=== PATIENT | male | born 1950 | race Two or more races ===

== ENCOUNTER 2017-09-04 05:39 | Inpatient (IN) | payer OTHER ==
[2017-09-04] VITALS (10 sets, daily range): BP systolic 109–129; BP diastolic 70–84
[~2017-09-04] VITALS: Ht 188 cm; Wt 103.4 kg
[2017-09-04] MEDS ORDERED: celeBREX 200mg Cap **SURGERY PATIENTS ONLY ORAL ONE (06:00)
[2017-09-04] MEDS ORDERED: ceFAZolin 1gm/50ml Premix 50 ML IV ONE (06:00)
[2017-09-04] MEDS ORDERED: oxyCONTIN 20mg tab ORAL ONE (06:00)
[2017-09-04] MEDS ORDERED: ceFAZolin sod 1 GM in D5W 55 ML IVPB SCH (06:00)
[2017-09-04] MEDS ORDERED: ZOLOFT100 MG ORAL (06:05)
[2017-09-04] MEDS ORDERED: BACTROBAN NASAL1 GM NASAL (06:05)
[2017-09-04] MEDS ORDERED: VENTOLIN HFA18 GM INH (06:05)
[2017-09-04] MEDS ORDERED: SYMBICORT 16010.2 G1 IH (06:05)
[2017-09-04] MEDS ORDERED: DIOVAN HCT 3201 EACH ORAL (06:05)
[2017-09-04] MEDS ORDERED: ZOLPIDEM TARTRA10 MG ORAL (06:05)
[2017-09-04] MEDS ORDERED: MELATONIN1 M2 PO (06:34)
[2017-09-04] MEDS ORDERED: Bupivacaine 0.5% Inj 30 ml vial INJ ONE (06:44)
[2017-09-04] MEDS ORDERED: cloNIDine 1000mcg/10ml inj ONE (06:44)
[2017-09-04] MEDS ORDERED: Ropivacaine 5mg/ml Vial 30ml INJ ONE (06:45)
--- NOTE | 2017-09-04 06:59 | Pre-Procedure Note/Attestation ---
Pre-Procedure Note/Attestation Complete Prior to Procedure Planned Procedure: left Procedure Narrative: Left tka Indications for Procedure Pre-Operative Diagnosis: Left knee arthritis Attestation I attest that I discussed the nature of the procedure; its benefits; risks and complications; and alternatives (and the risks and benefits of such alternatives ), prior to the procedure, with the patient (or the patient's legal insurance account representative). I attest that, if there was a reasonable possibility of needing a blood transfusion, the patient (or the patient's legal insurance account representative) was given the [facility] standardized written summary, pursuant to the Praful Simón Blood Safety Act ([place] Health and Safety Code # 1645, as amended). I attest that I re-evaluated the patient just prior to the surgery and that there has been no change in the patient's H&P, except as documented below: NONE HUSSEIN GÓMEZ Sep 04, 2017 06:59
[2017-09-04] MEDS ORDERED: Bacitracin 50000 Units Vial ONE (07:00)
[2017-09-04] MEDS ORDERED: NeoSporin Gu Irrig 1ml Amp IRRIG ONE (07:00)
[2017-09-04] MEDS ORDERED: Propofol 200mg/20ml IV ONE (07:00)
[2017-09-04] MEDS ORDERED: Midazolam 2mg/2ml Inj ONE (07:00)
[2017-09-04] MEDS ORDERED: Lidocaine 1% MPF 10mg/ml 5ml ONE (07:00)
[2017-09-04] MEDS ORDERED: NS Irrig 1000ml ONE (07:00)
[2017-09-04] MEDS ORDERED: Alfentanil 2ml Inj ONE (07:00)
[2017-09-04] MEDS ORDERED: Sterile Water Irrig 1000ml IRRIG ONE (07:00)
[2017-09-04] MEDS ORDERED: LR 1000ml ONE (07:00)
[2017-09-04] MEDS ORDERED: Dexamethasone 4mg/ml vial ONE (07:00)
[2017-09-04] MEDS ORDERED: HYDROmorphone 1mg/ml Carpuject SUBQ PRN (07:30)
[2017-09-04] MEDS ORDERED: Milk of Magnesia 30ml Ud ORAL PRN (07:30)
[2017-09-04] MEDS ORDERED: HYDROcodone/Acetamin 7.5/325 tab ORAL PRN ×2 (07:30→08:00)
[2017-09-04] MEDS ORDERED: LR 1000ml 1,000 ML IVLG SCH (07:46)
[2017-09-04] MEDS ORDERED: LORazepam Inj 2mg/ml 1ml IV PRN (08:00)
[2017-09-04] MEDS ORDERED: fentaNYL 100 mcg/2 mL IV PRN (08:00)
[2017-09-04] MEDS ORDERED: Norco 5mg/325mg tab ORAL PRN (08:00)
[2017-09-04] MEDS ORDERED: Tranexamic Acid 1,000 MG in NS 65 ML IVPB ONE (08:00)
[2017-09-04] MEDS ORDERED: oxyCODONE HCL/Acetaminophen 5/325mg ORAL PRN (08:00)
[2017-09-04] MEDS ORDERED: Ketorolac 30mg Inj IV PRN (08:00)
[2017-09-04] MEDS ORDERED: Ketorolac 60mg Inj IV PRN (08:00)
[2017-09-04] MEDS ORDERED: DiphenhydrAMINE 50mg/ml Inj IVP PRN (08:00)
[2017-09-04] MEDS ORDERED: Labetalol 5mg/ml 20ml vial IV PRN (08:00)
[2017-09-04] MEDS ORDERED: Hydromorphone 0.5mg/0.5ml inj IVP PRN (08:00)
[2017-09-04] MEDS ORDERED: Midazolam 2mg/2ml Inj IVP PRN (08:00)
[2017-09-04] MEDS ORDERED: Atropine Inj 1mg/10ml Syr IV PRN (08:00)
--- NOTE | 2017-09-04 08:00 | Anethesia Preoperative Eval ---
Anesthesia Pre-op PMH/ROS General Date of Evaluation: Sep 04, 2017 Time of Evaluation: 07:01 Anesthesiologist: Kwame ASA Score: ASA 3 Mallampati Score Class I : Soft palate, uvula, fauces, pillars visible Class II: Soft palate, uvula, fauces visible Class III: Soft palate, base of uvula visible Class IV: Only hard plate visible Mallampati Classification: Class II Surgeon: Madan Diagnosis: L Knee Pain Surgical Procedure: L Knee Total Arthroplasty Anesthesia History: none Social History: smoking Family History: no anesthesia problems Allergies: Coded Allergies: No Known Allergies (Unverified , 09/04/17) Medications: see eMAR Past Medical History Cardiovascular: Reports: HTN Pulmonary: Reports: asthma, COPD, other - Hiatal Hernia Gastrointestinal/Genitourinary: Reports: other - BPH Hematology/Immune: Reports: DVT, other - Skin CA Musculoskeletal/Integumentary: Reports: DJD PSxH Narrative: R TKR Anesthesia Pre-op Phys. Exam Physician Exam Last Vital Signs Date Time Temp Pulse Resp B/P (MAP) Pulse Ox O2 Delivery O2 Flow Rate FiO2 09/04/17 06:40 97.0 55 18 129/80 94 Room Air Constitutional: NAD Neurologic: CN 2-12 intact Cardiovascular: RRR Respiratory: CTA Gastrointestinal: S/NT/ND Airway Exam Mallampati Score: Class II MO: limited ROM: limited Teeth: intact Anesthesia Pre-op A/P Risk Assessment & Plan Assessment: ASA 3 Plan: GA, BIS, Spinal, L Adductor Block Status Change Before Surgery: No Pre-Antibiotics Dru Grams Ancef IV Given Within 1 Hr of Incision: Yes Time Given: 07:36 Virgil Nagel MD Sep 04, 2017 08:00
--- NOTE | 2017-09-04 08:01 | Immediate Post-Op Evaluation ---
Immediate Post-Op Evalulation Immediate Post-Op Evalulation Procedure: L Knee Total Arthroplasty Date of Evaluation: Sep 04, 2017 Time of Evaluation: 10:35 IV Fluids: 1000 LR Blood Products: 0 Estimated Blood Loss: 50 Urinary Output: 400 Blood Pressure Systolic: 123 Blood Pressure Diastolic: 84 Pulse Rate: 87 Respiratory Rate: 16 O2 Sat by Pulse Oximetry: 99 Temperature (Fahrenheit): 97.3 Pain Score (1-10): 0 Nausea: No Vomiting: No Complications 0 Patient Status: awake, reacts, patent, extubated, none Hydration Status: adequate Dru Grams Ancef IV Given Within 1 Hr of Incision: Yes Time Given: 07:36 Virgil Nagel MD Sep 04, 2017 08:01
--- NOTE | 2017-09-04 10:13 | Brief Operative Note ---
Immediate Post Operative Note Operative Note Chief Complaint: left knee pain Pre-op Diagnosis: left knee arthritis Procedure: left tka Post-op Diagnosis: same as pre-op Findings: consistent w/pre-op dx studies Surgeon: md demetrice Varnish Melter Helper: souleymane encarnacion Anesthesiologist: md abe Anesthesia: general, regional Specimen: yes Complications: none Condition: stable Fluids: ns Estimated Blood Loss: minimal Drains: none Implant(s) used?: Yes - ZELDA Valverde Sep 04, 2017 10:13
--- NOTE | 2017-09-04 13:24 | Diagnostic Imaging Report ---
Indications: Postoperative status post left knee arthroplasty Technique: Two views of the left knee Comparison: None Findings: Two postoperative views of the left knee demonstrate total knee arthroplasty, good anatomic alignment of the prosthesis. . There is postsurgical soft tissue air. Overlying skin sabrina. Impression: Postoperative left knee, no unusual features.
[2017-09-04] MEDS: celeBREX 200mg Cap **SURGERY PATIENTS ONLY ORAL SCH ×2 (13:30→23:07)
--- NOTE | 2017-09-04 13:45 | Operative Note - Dictated ---
DATE OF OPERATION: 09/04/2017 PREOPERATIVE DIAGNOSIS: Left knee end-stage arthritis. POSTOPERATIVE DIAGNOSIS: Left knee end-stage arthritis. PROCEDURE: Left total knee arthroplasty using the [employer] Person[employer] system, size #11 femur, size H tibia with 35 mm all-poly patella with a 10-mm ultra cross-linked polyethylene with vitamin E-infused tibial insert, all cemented. SURGEON: Jhonny Hagre M.D. MILITARY PERSONNEL SPECIALIST: Jyothi Fuentes PA-C. ANESTHESIOLOGIST: Dr. Nagel. ANESTHESIA: Spinal anesthesia with adductor nerve block. ESTIMATED BLOOD LOSS: Less than 100 mL. TOURNIQUET TIME: 78 minutes. COMPLICATIONS: None. BRIEF HISTORY: The patient is a pleasant 66-year-old gentleman who has had ongoing left knee arthritis. He failed nonoperative treatment. After full discussion of risks and benefits of surgery and complications associated with it including infection, bleeding, neurovascular complication, possibility of continued pain, possibility of infection requiring resection arthroplasty, possible DVT or PE, loss of motion, continued stiffness, and inability to walk for prolonged period of time, he opted for surgical treatment as described above. OPERATIVE PROCEDURE: The patient was brought to the operating table and was placed supine. All pressure points were well padded. Spinal anesthesia was induced. The left knee was prepped and draped in usual sterile fashion. Time-out was performed and preop antibiotic was given and 1 g of tranexamic acid was given. The left leg was then exsanguinated and tourniquet was inflated to 275 mmHg. A standard anterior approach to the knee was undertaken. Medial parapatellar arthrotomy was performed. The deep fibers of MCL were released and medial and lateral meniscus were removed. The kneecap was everted and the knee was flexed. The fat pad was dissected. At this point, the ACL and PCL were removed and intramedullary access into the femur was obtained. Intramedullary guide was placed into the femur and 7-degree valgus cut of distal femur was performed without any complication. Sizing was performed and size #11 appeared to be the right size. The knee was placed in about 3 degrees of external rotation and the guide was applied and anterior, posterior, and chamfer cuts were performed without any complication. There was very slight notching of the anterior femur which was inconsequential. At this point, all wounds were thoroughly irrigated. The femoral trial was applied and there was excellent fit. The femoral peg holes were then drilled without any complications and femur was slightly lateralized. Once this was completed, care was given to tibia. The anterior tibial crest was palpated. The external guide was placed and using the guide, anatomical access was recreated and 3 mm was taken off the most involved side, which was the medial side. This provided excellent flexion-extension gap which was checked. At this point, sizing was performed and size H appeared to be the right size. The size H tibial component was placed in slight external rotation and slightly lateralized and stabilized with some pins. At this point, the tibial component was then punched without any complication. The trial components were applied. There was excellent range of motion and excellent stability with varus and valgus stressing. At this point, care was given to the patella. The patella was everted. It measured 25 mm. At this point, a standard patellar cut was performed and the final patellar cut was 14 mm in thickness. The peg holes were drilled and 35 mm patellar component was applied at this point, and all trial components were applied and the knee was placed through range of motion. There was full extension, full flexion, and excellent stability at zero, 30 degrees, 45 degrees, and 90 degrees of flexion. The patellofemoral tracking was excellent. A 10-mm poly trial was used for trialing. At this point, all trial components were removed. The knee was thoroughly irrigated using copious amount of fluid. Cement was mixed and the tibial component, femoral component, and patellar components were all cemented without any complications. All excess cement was removed. The knee was thoroughly irrigated multiple times with Simpulse irrigation. The trialing was performed and 10-mm poly appeared to be the right size which provided excellent range of motion stability as described previously. Therefore, vitamin E infused ultra cross-linked polyethylene was then locked in without any complications. At this point, range of motion and patellofemoral tracking was checked one more last time and was excellent again. The knee was thoroughly irrigated again. There were no loose fragments. At this point, tourniquet was deflated and there was minimal bleeding which was cauterized. The extensor mechanism was closed with #1 Vicryl suture, subcutaneous tissue was closed in 2-0 Vicryl suture, and the skin was closed in 3-0 Monocryl suture. Sterile dressing was applied and Dermabond was applied prior to applying sterile dressing. The patient was then awakened and was taken to recovery room in stable condition. All lap counts and instrument counts were correct. Jhonny Gianna Hager DR: Maurilio JOB#: [id number] CC: JONATHAN
--- NOTE | 2017-09-04 14:13 | General Progress Note ---
Assessment/Plan Status Narrative s/p toal knee arthroplasty history of hypertenison Assessment/Plan PHYSICAKL THERPAY OCCUPATIONA LTHERPAY CPM FOLLOW CBC DAILY APINCONTROL HAS HYPETRTENSION MONITOR BP AND BP MEDS WITH PARAMETERS. Subjective Date patient seen: Sep 04, 2017 Time patient seen: 14:12 Constitutional: Reports: no symptoms Cardiovascular: Reports: no symptoms Allergies: Coded Allergies: No Known Allergies (Unverified , 09/04/17) Objective Last 24 Hour Vital Signs Date Time Temp Pulse Resp B/P (MAP) Pulse Ox O2 Delivery O2 Flow Rate FiO2 09/04/17 11:30 97.7 79 18 122/76 100 Nasal Cannula 3.0 09/04/17 11:15 80 20 114/75 100 Nasal Cannula 3.0 09/04/17 11:00 76 16 117/78 100 Nasal Cannula 3.0 09/04/17 10:50 79 18 121/74 100 Nasal Cannula 3.0 09/04/17 10:40 77 17 109/70 100 Nasal Cannula 3.0 09/04/17 10:30 81 20 117/82 100 Simple Mask 6.0 09/04/17 10:24 97.3 85 16 123/84 99 Simple Mask 6.0 09/04/17 10:23 207.1 87 16 99 09/04/17 06:40 97.0 55 18 129/80 94 Room Air Intake and Output 09/03/17 09/04/17 19:00 07:00 # Voids 1 Height (Feet): 6 Height (Inches): 2.00 Weight (Pounds): 228 General Appearance: WD/WN Neck: non-tender Cardiovascular: no JVD Respiratory/Chest: lungs clear Abdomen: soft Extremities: non-tender BRETT CHUNG Sep 04, 2017 14:13
[2017-09-04] MEDS: D5 1/2NS w/KCl 20mEq 1,000 ML IV SCH (14:24)
[2017-09-04] MEDS: ceFAZolin sod 1 GM in NS 55 ML IV SCH ×2 (14:24→21:05)
[2017-09-04] MEDS: Docusate 100mg cap ORAL SCH (17:38)
[2017-09-04] MEDS: Enoxaparin 30mg Inj SUBQ SCH (17:39)
[2017-09-04] MEDS ORDERED: Albuterol ud Inhalation HHN PRN (19:00)
[2017-09-04] MEDS: oxyCONTIN 20mg tab ORAL SCH (21:06)
[2017-09-05 00:30] VITALS: BP 136/78
--- NOTE | 2017-09-05 01:15 | Consultation ---
DATE OF CONSULTATION: 09/04/2017 INTERNAL MEDICINE CONSULTATION CONSULTING PHYSICIAN: Jordan Flores M.D. ATTENDING PHYSICIAN: Jhonny Hager M.D. HISTORY OF PRESENT ILLNESS: The patient is a very pleasant 66-year-old gentleman, who was admitted for left knee replacement by Dr. Hager. The patient has been seen postoperatively and feels well. Denies any fevers or chills. No chest pain. No shortness of breath. Pain in left knee controlled. PAST MEDICAL HISTORY: Includes history of asthma, history of hypertension, history of BPH, history of eczema psoriasis, history of previous right knee replacement, history of arthritis of his knees, history of insomnia, history of depression, and history of left ankle broken for which he had surgery back in 05/2015. He developed an infection as well and was hospitalized, and was on Xarelto at that time for three months. He had the hardware removed three months afterwards. History of bronchitis and history of insomnia. MEDICATIONS: Please see his reconciled medication list. ALLERGIES: He has no known allergies. FAMILY HISTORY: Mother and father both had high blood pressure. SOCIAL HISTORY: The patient does not smoke. Drinks alcohol socially. Drinks one cup of coffee a day. Used to work for the [employer] department. PHYSICAL EXAMINATION: GENERAL: He is well developed and well nourished, currently in no apparent distress. VITAL SIGNS: Stable. He is afebrile. HEENT: Head is normocephalic and atraumatic. Pupils are equal and reactive to light. Extraocular muscles are intact. Eyes are anicteric. NECK: Supple. No JVP. No bruits. LUNGS: Clear. HEART: Regular rate and rhythm. ABDOMEN: Soft. Positive bowel sounds. EXTREMITIES: Postoperatively, he has a knee immobilizer/brace. Neurovascular intact. PSYCHIATRIC: Normal mood and affect. NEUROLOGIC: Nonfocal. ASSESSMENT AND PLAN: The patient is a very pleasant 66-year-old gentleman, who underwent left knee replacement by Dr. Hager, postoperatively doing well. The patient should be on deep venous thrombosis and ulcer prophylaxis. He should be on his home medications as well. Thank you for allowing me to participate in the care of this patient. Jordan Flores M.D. DR: FABRICIO JOB#: [id number] CC:
[2017-09-05] MEDS: D5 1/2NS w/KCl 20mEq 1,000 ML IV SCH ×2 (02:50→16:45)
[2017-09-05] MEDS: Norco 5mg/325mg tab ORAL PRN ×4 (02:54→17:24)
[2017-09-05 04:42] VITALS: BP 133/80
[2017-09-05] MEDS: Enoxaparin 30mg Inj SUBQ SCH ×2 (06:34→18:46)
[2017-09-05 08:00] VITALS: BP 112/73
--- NOTE | 2017-09-05 08:04 | 48 Hour Post Anesthesia Eval ---
Post Anesthesia Evaluation Procedure: L Knee Total Arthroplasty Date of Evaluation: Sep 05, 2017 Time of Evaluation: 06:30 Blood Pressure Systolic: 133 0: 80 Pulse Rate: 78 Respiratory Rate: 18 Temperature (Fahrenheit): 98.2 O2 Sat by Pulse Oximetry: 95 Airway: patent Nausea: No Vomiting: No Pain Intensity: 3 Hydration Status: adequate Cardiopulmonary Status: at baseline Mental Status/LOC: patient returned to baseline Post-Anesthesia Complications: 0 Follow-up care needed: N/A - further care as per primary team ERIC SANCHEZ M.D. Sep 05, 2017 08:04
--- NOTE | 2017-09-05 08:10 | Orthopedic Progress Note ---
Orthopedic - Progress Note Subjective Symptoms: improved - walked with PT last evening. Walking with PT now Objective Vital Signs Labs Pending Last 24 Hour Vital Signs Date Time Temp Pulse Resp B/P (MAP) Pulse Ox O2 Delivery O2 Flow Rate FiO2 09/05/17 08:04 208.8 78 18 95 09/05/17 07:45 98.2 09/05/17 04:42 98.2 78 18 133/80 95 98.2 09/05/17 00:30 97.9 83 17 136/78 95 97.9 09/04/17 20:57 97.7 82 18 126/79 95 97.7 09/04/17 16:00 98.1 82 18 113/81 97 Nasal Cannula 3.0 98.1 09/04/17 11:30 97.7 79 18 122/76 100 Nasal Cannula 3.0 09/04/17 11:15 80 20 114/75 100 Nasal Cannula 3.0 09/04/17 11:00 76 16 117/78 100 Nasal Cannula 3.0 09/04/17 10:50 79 18 121/74 100 Nasal Cannula 3.0 09/04/17 10:40 77 17 109/70 100 Nasal Cannula 3.0 09/04/17 10:30 81 20 117/82 100 Simple Mask 6.0 09/04/17 10:24 97.3 85 16 123/84 99 Simple Mask 6.0 09/04/17 10:23 207.1 87 16 99 I&O Intake and Output 09/04/17 09/05/17 19:00 07:00 Intake Total 1025 ml 1020 ml Output Total 800 ml 1400 ml Balance 225 ml -380 ml Intake Oral 480 ml 120 ml IV Total 545 ml 900 ml Output Urine Total 800 ml 1400 ml # Voids 2 5 Wound: clean, dry, intact Drains: none Neuro Status: normal Vascular Status: normal Additional Comments Xray excellent Assessment Post-op Diagnosis POD 1 Procedure Performed left tka Plan Plan: PT, discharge plan - Likely home with services tomorrow, other - f/u today's labs ZELDA HAMMOND Sep 05, 2017 08:10
[2017-09-05] MEDS: Irbesartan 150mg tablet ORAL SCH (08:47)
[2017-09-05] MEDS: hydroCHLOROthiazide 12.5mg TAB ORAL SCH (08:47)
[2017-09-05] MEDS: celeBREX 200mg Cap **SURGERY PATIENTS ONLY ORAL SCH (08:48)
[2017-09-05] MEDS: Docusate 100mg cap ORAL SCH ×3 (08:49→17:19)
[2017-09-05] MEDS: oxyCONTIN 20mg tab ORAL SCH ×2 (08:49→21:21)
[2017-09-05 09:30] LABS: BASOPHILS % (AUTO) 0.2 % (0.0-2.0); HEMATOCRIT 38.7 % (42.0-52.0); HEMOGLOBIN 13.5 G/DL (14.2-18.0); LYMPHOCYTES % (AUTO) 6.6 % (20.0-45.0); MEAN CORPUSCULAR VOLUME 99 FL (80-99); MONOCYTES % (AUTO) 8.7 % (1.0-10.0); NEUTROPHILS % (AUTO) 84.4 % (45.0-75.0); PLATELET COUNT 198 K/UL (150-450); RED BLOOD COUNT 3.93 M/UL (4.70-6.10); RED CELL DISTRIBUTION WIDTH 12.1 % (11.6-14.8); WHITE BLOOD COUNT 15.3 K/UL (4.8-10.8)
[2017-09-05 12:00] VITALS: BP 123/74
[2017-09-05 16:00] VITALS: BP 111/67
--- NOTE | 2017-09-05 19:32 | General Progress Note ---
Assessment/Plan Assessment/Plan sp left knee replacement ho asthma leukocytosis ? reactive htn PT ambulate respiratory treatments pulmonary hygiene monitor labs dvt and ulcer prophylaxis Subjective Allergies: Coded Allergies: No Known Allergies (Unverified , 09/04/17) Subjective walking with PT no chest pain had some wheezing Objective Last 24 Hour Vital Signs Date Time Temp Pulse Resp B/P (MAP) Pulse Ox O2 Delivery O2 Flow Rate FiO2 09/05/17 18:38 77 18 96 Room Air 21 09/05/17 18:38 76 18 96 Room Air 21 09/05/17 18:23 98.2 09/05/17 17:24 98.2 09/05/17 16:00 97.9 70 20 111/67 95 Room Air 97.9 09/05/17 13:10 98.2 09/05/17 12:00 97.6 69 21 123/74 98 Room Air 97.6 09/05/17 12:00 97.6 69 21 123/74 98 Room Air 97.6 09/05/17 10:40 82 22 98 Room Air 21 09/05/17 10:38 80 20 97 Room Air 21 09/05/17 09:48 98.2 09/05/17 08:49 98.2 09/05/17 08:47 112/73 09/05/17 08:04 208.8 78 18 95 09/05/17 08:00 97.5 72 21 112/73 100 Room Air 97.5 09/05/17 07:45 98.2 09/05/17 04:42 98.2 78 18 133/80 95 98.2 09/05/17 00:30 97.9 83 17 136/78 95 97.9 09/04/17 20:57 97.7 82 18 126/79 95 97.7 Intake and Output 09/04/17 09/05/17 19:00 07:00 Intake Total 1025 ml 1020 ml Output Total 800 ml 1400 ml Balance 225 ml -380 ml Intake Oral 480 ml 120 ml IV Total 545 ml 900 ml Output Urine Total 800 ml 1400 ml # Voids 2 5 Laboratory Tests 09/05/17 08:55: White Blood Count 15.3H, Red Blood Count 3.93L, Hemoglobin 13.5L, Hematocrit 38.7L, Mean Corpuscular Volume 99, Mean Corpuscular Hemoglobin 34.2H, Mean Corpuscular Hemoglobin Concent 34.7, Red Cell Distribution Width 12.1, Platelet Count 198, Mean Platelet Volume 6.7, Neutrophils (%) (Auto) 84.4H, Lymphocytes ( %) (Auto) 6.6L, Monocytes (%) (Auto) 8.7, Eosinophils (%) (Auto) 0.0, Basophils (%) (Auto) 0.2 Height (Feet): 6 Height (Inches): 2.00 Weight (Pounds): 228 General Appearance: WD/WN, no apparent distress Neck: supple Cardiovascular: normal rate Respiratory/Chest: lungs clear Abdomen: soft ELIAZAR HASSAN Sep 05, 2017 19:32
[2017-09-05 20:00] VITALS: BP 127/82
[2017-09-06] VITALS: BP 125/73
[2017-09-06] MEDS: Norco 5mg/325mg tab ORAL PRN ×3 (00:53→17:56)
[2017-09-06 04:00] VITALS: BP 117/75
[2017-09-06] MEDS: D5 1/2NS w/KCl 20mEq 1,000 ML IV SCH (06:05)
[2017-09-06] MEDS: Enoxaparin 30mg Inj SUBQ SCH ×2 (06:06→19:00)
[2017-09-06 07:25] LABS: BASOPHILS % (AUTO) 0.5 % (0.0-2.0); EOSINOPHILS % (AUTO) 1.1 % (0.0-3.0); HEMATOCRIT 33.7 % (42.0-52.0); HEMOGLOBIN 11.8 G/DL (14.2-18.0); LYMPHOCYTES % (AUTO) 14.1 % (20.0-45.0); MEAN CORPUSCULAR VOLUME 100 FL (80-99); MONOCYTES % (AUTO) 11.7 % (1.0-10.0); NEUTROPHILS % (AUTO) 72.7 % (45.0-75.0); PLATELET COUNT 164 K/UL (150-450); RED BLOOD COUNT 3.39 M/UL (4.70-6.10); RED CELL DISTRIBUTION WIDTH 12.3 % (11.6-14.8); WHITE BLOOD COUNT 8.8 K/UL (4.8-10.8)
--- NOTE | 2017-09-06 07:33 | Orthopedic Progress Note ---
Orthopedic - Progress Note Subjective Symptoms: c/o post-op knee pain Objective Vital Signs Last 24 Hour Vital Signs Date Time Temp Pulse Resp B/P (MAP) Pulse Ox O2 Delivery O2 Flow Rate FiO2 09/06/17 04:00 97.4 62 18 117/75 98 Room Air 97.4 09/06/17 00:00 97.7 63 18 125/73 98 Room Air 97.7 09/05/17 20:00 97.6 66 18 127/82 98 Nasal Cannula 2.0 97.6 09/05/17 18:38 77 18 96 Room Air 21 09/05/17 18:38 76 18 96 Room Air 21 09/05/17 18:23 98.2 09/05/17 17:24 98.2 09/05/17 16:00 97.9 70 20 111/67 95 Room Air 97.9 09/05/17 13:10 98.2 09/05/17 12:00 97.6 69 21 123/74 98 Room Air 97.6 09/05/17 12:00 97.6 69 21 123/74 98 Room Air 97.6 09/05/17 10:40 82 22 98 Room Air 21 09/05/17 10:38 80 20 97 Room Air 21 09/05/17 09:48 98.2 09/05/17 08:49 98.2 09/05/17 08:47 112/73 09/05/17 08:04 208.8 78 18 95 09/05/17 08:00 97.5 72 21 112/73 100 Room Air 97.5 09/05/17 07:45 98.2 I&O Intake and Output 09/05/17 09/06/17 19:00 07:00 Intake Total 1862.5 ml 1050 ml Output Total 1200 ml Balance 662.5 ml 1050 ml Intake Oral 1000 ml 300 ml IV Total 862.5 ml 750 ml Output Urine Total 1200 ml # Voids 3 2 Wound: intact - , but there is some staining of the dressing. NO active wound bleed and wound approximated well Drains: none Neuro Status: normal Assessment Post-op Diagnosis Doing well s/p Left TKA Plan Plan: PT, pain management, discharge plan Additional Comments Dressing changes today. Follow up on HUSSEIN Bach Sep 06, 2017 07:33
[2017-09-06 08:00] VITALS: BP 125/79
[2017-09-06] MEDS: Irbesartan 150mg tablet ORAL SCH (08:17)
[2017-09-06] MEDS: Docusate 100mg cap ORAL SCH ×3 (08:19→18:05)
[2017-09-06] MEDS: celeBREX 200mg Cap **SURGERY PATIENTS ONLY ORAL SCH (08:19)
[2017-09-06] MEDS: oxyCONTIN 20mg tab ORAL SCH ×2 (08:19→21:06)
[2017-09-06] MEDS: hydroCHLOROthiazide 12.5mg TAB ORAL SCH (08:20)
[2017-09-06 12:00] VITALS: BP 135/79
--- NOTE | 2017-09-06 12:53 | General Progress Note ---
Assessment/Plan Assessment/Plan sp left knee replacement ho asthma leukocytosis resolved htn nauea PT ambulate respiratory treatments pulmonary hygiene antiemetic prn dvt and ulcer prophylaxis Subjective Allergies: Coded Allergies: No Known Allergies (Unverified , 09/04/17) Subjective feels better no chest painor sob some nasuea today after taking pain medication Objective Last 24 Hour Vital Signs Date Time Temp Pulse Resp B/P (MAP) Pulse Ox O2 Delivery O2 Flow Rate FiO2 09/06/17 09:13 78 16 96 Room Air 21 09/06/17 09:13 78 16 96 Room Air 21 09/06/17 08:17 125/79 09/06/17 08:00 98.3 60 19 125/79 98 98.3 09/06/17 04:00 97.4 62 18 117/75 98 Room Air 97.4 09/06/17 00:00 97.7 63 18 125/73 98 Room Air 97.7 09/05/17 20:00 97.6 66 18 127/82 98 Nasal Cannula 2.0 97.6 09/05/17 18:38 77 18 96 Room Air 21 09/05/17 18:38 76 18 96 Room Air 21 09/05/17 18:23 98.2 09/05/17 17:24 98.2 09/05/17 16:00 97.9 70 20 111/67 95 Room Air 97.9 09/05/17 13:10 98.2 Intake and Output 09/05/17 09/06/17 19:00 07:00 Intake Total 1862.5 ml 1050 ml Output Total 1200 ml Balance 662.5 ml 1050 ml Intake Oral 1000 ml 300 ml IV Total 862.5 ml 750 ml Output Urine Total 1200 ml # Voids 3 2 Laboratory Tests 09/06/17 06:25: White Blood Count 8.8, Red Blood Count 3.39L, Hemoglobin 11.8L, Hematocrit 33.7L , Mean Corpuscular Volume 100H, Mean Corpuscular Hemoglobin 34.9H, Mean Corpuscular Hemoglobin Concent 35.0, Red Cell Distribution Width 12.3, Platelet Count 164, Mean Platelet Volume 6.8, Neutrophils (%) (Auto) 72.7, Lymphocytes (% ) (Auto) 14.1L, Monocytes (%) (Auto) 11.7H, Eosinophils (%) (Auto) 1.1, Basophils (%) (Auto) 0.5 Height (Feet): 6 Height (Inches): 2.00 Weight (Pounds): 228 General Appearance: WD/WN, no apparent distress Neck: supple Cardiovascular: normal rate Respiratory/Chest: lungs clear Abdomen: soft Objective left leg dressing clean, neurovascular intact ELIAZAR HASSAN Sep 06, 2017 12:52
[2017-09-06 16:00] VITALS: BP 117/76
[2017-09-06 20:00] VITALS: BP 113/76
[2017-09-07] VITALS: BP_SYST 116; BP_SYST 124; BP_DIAS 77; BP_DIAS 79
[2017-09-07 04:00] VITALS: BP 123/75
[2017-09-07] MEDS: Enoxaparin 30mg Inj SUBQ SCH (06:12)
[2017-09-07 06:41] LABS: EOSINOPHILS % (AUTO) 2.7 % (0.0-3.0); HEMATOCRIT 34.6 % (42.0-52.0); HEMOGLOBIN 11.9 G/DL (14.2-18.0); LYMPHOCYTES % (AUTO) 14.8 % (20.0-45.0); MEAN CORPUSCULAR VOLUME 101 FL (80-99); MONOCYTES % (AUTO) 11.1 % (1.0-10.0); NEUTROPHILS % (AUTO) 70.4 % (45.0-75.0); PLATELET COUNT 169 K/UL (150-450); RED BLOOD COUNT 3.44 M/UL (4.70-6.10); RED CELL DISTRIBUTION WIDTH 12.3 % (11.6-14.8); WHITE BLOOD COUNT 7.5 K/UL (4.8-10.8)
--- NOTE | 2017-09-07 08:02 | Orthopedic Progress Note ---
Orthopedic - Progress Note Subjective Symptoms: improved Objective Vital Signs Laboratory Tests Test 09/07/17 05:25 White Blood Count 7.5 K/UL (4.8-10.8) Red Blood Count 3.44 M/UL (4.70-6.10) L Hemoglobin 11.9 G/DL (14.2-18.0) L Hematocrit 34.6 % (42.0-52.0) L Mean Corpuscular Volume 101 FL (80-99) H Mean Corpuscular Hemoglobin 34.5 PG (27.0-31.0) H Mean Corpuscular Hemoglobin Concent 34.3 G/DL (32.0-36.0) Red Cell Distribution Width 12.3 % (11.6-14.8) Platelet Count 169 K/UL (150-450) Mean Platelet Volume 6.6 FL (6.5-10.1) Neutrophils (%) (Auto) 70.4 % (45.0-75.0) Lymphocytes (%) (Auto) 14.8 % (20.0-45.0) L Monocytes (%) (Auto) 11.1 % (1.0-10.0) H Eosinophils (%) (Auto) 2.7 % (0.0-3.0) Basophils (%) (Auto) 1.0 % (0.0-2.0) Last 24 Hour Vital Signs Date Time Temp Pulse Resp B/P (MAP) Pulse Ox O2 Delivery O2 Flow Rate FiO2 09/07/17 04:00 97.8 71 18 123/75 98 Room Air 97.8 09/07/17 00:00 98.2 80 20 124/79 98 Room Air 98.2 09/06/17 20:00 97.8 73 20 113/76 96 Room Air 97.8 09/06/17 18:45 66 16 95 Room Air 21 09/06/17 18:43 66 16 95 Room Air 21 09/06/17 16:00 97.6 71 19 117/76 96 97.6 09/06/17 12:00 97.9 76 19 135/79 96 97.9 09/06/17 09:13 78 16 96 Room Air 21 09/06/17 09:13 78 16 96 Room Air 21 09/06/17 08:17 125/79 I&O Intake and Output 09/06/17 09/07/17 19:00 07:00 Intake Total 940 ml 240 ml Balance 940 ml 240 ml Intake Oral 940 ml 240 ml # Voids 4 2 Wound: clean, dry, intact Drains: none Neuro Status: normal Vascular Status: normal Assessment Post-op Diagnosis POD 3 Procedure Performed left tka Plan Plan: discharge to home - fu 2 weeks ZELDA HAMMOND Sep 07, 2017 08:02
--- NOTE | 2017-09-07 08:04 | Discharge Summary ---
Discharge Summary Hospital Course Date of Admission Sep 04, 2017 at 05:39 Date of Discharge 09/07/17 Admitting Diagnosis LEFT KNEE ARTHRITIS MOJGAN Myles is a 66 year old male who was admitted on Sep 04, 2017 at 05:39 for Traumatic Lt Knee Consultations SONYA CHUNG Procedures LEFT TKA Hospital Course BENIGN Discharge Condition Upon Discharge: stable Discharge Disposition Patient was discharged to HOME WITH HOME CARE Discharge Diagnoses: ZELDA HAMMOND Sep 07, 2017 08:04
[2017-09-07 09:15] VITALS: BP 123/75
[2017-09-07] MEDS: Irbesartan 150mg tablet ORAL SCH (09:15)
[2017-09-07] MEDS: oxyCONTIN 20mg tab ORAL SCH (09:15)
[2017-09-07] MEDS: Docusate 100mg cap ORAL SCH (09:16)
[2017-09-07] MEDS: hydroCHLOROthiazide 12.5mg TAB ORAL SCH (09:16)
[2017-09-07] MEDS: celeBREX 200mg Cap **SURGERY PATIENTS ONLY ORAL SCH (09:16)
--- NOTE | 2017-09-07 23:08 | General Progress Note ---
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 resume home meds fup as outpatient Subjective Allergies: Coded Allergies: No Known Allergies (Unverified , 09/04/17) Subjective above noted going home today Objective Last 24 Hour Vital Signs Date Time Temp Pulse Resp B/P (MAP) Pulse Ox O2 Delivery O2 Flow Rate FiO2 09/07/17 09:15 123/75 09/07/17 09:15 97.8 09/07/17 09:09 86 18 100 Room Air 21 09/07/17 09:06 84 20 100 Room Air 21 09/07/17 04:00 97.8 71 18 123/75 98 Room Air 97.8 09/07/17 00:00 98.2 80 20 124/79 98 Room Air 98.2 Intake and Output 09/06/17 09/07/17 19:00 07:00 Intake Total 940 ml 240 ml Balance 940 ml 240 ml Intake Oral 940 ml 240 ml # Voids 4 2 Laboratory Tests 09/07/17 05:25: White Blood Count 7.5, Red Blood Count 3.44L, Hemoglobin 11.9L, Hematocrit 34.6L , Mean Corpuscular Volume 101H, Mean Corpuscular Hemoglobin 34.5H, Mean Corpuscular Hemoglobin Concent 34.3, Red Cell Distribution Width 12.3, Platelet Count 169, Mean Platelet Volume 6.6, Neutrophils (%) (Auto) 70.4, Lymphocytes (% ) (Auto) 14.8L, Monocytes (%) (Auto) 11.1H, Eosinophils (%) (Auto) 2.7, Basophils (%) (Auto) 1.0 Height (Feet): 6 Height (Inches): 2.00 Weight (Pounds): 228 General Appearance: WD/WN Neck: supple Cardiovascular: normal rate Respiratory/Chest: lungs clear Abdomen: soft Objective left leg dressing clean, neurovascular intact ELIAZAR HASSAN Sep 07, 2017 23:08
== END 2017-09-07 10:50 | disposition home health service (06) | DRG 470 ==
LOC: SDSOVERFLO 05:39 → 3E 12:20
PROC: 0SRD0J9 Replacement of Left Knee Joint with Synthetic Substitute, Cemented, Open Approach (ICD-10-PCS; principal; 2017-09-04 07:30)
DX: M17.12 Unilateral primary osteoarthritis, left knee (principal); I10 Essential (primary) hypertension; J45.909 Unspecified asthma, uncomplicated; Z86.14 Personal history of Methicillin resistant Staphylococcus aureus infection; Z96.651 Presence of right artificial knee joint; Z87.891 Personal history of nicotine dependence; N40.0 Benign prostatic hyperplasia without lower urinary tract symptoms; K44.9 Diaphragmatic hernia without obstruction or gangrene
CPT/HCPCS: 36415; 85025; 86850; 86900; 86901; 87081; 94003; 94150; 94640; J2250; J2405; J3490